=== PATIENT | female | born 1945 | race Caucasian/White ===

== ENCOUNTER → 2023-03-21 09:18 | Outpatient (REF) | payer MEDICARE, SELFPAY ==
[2023-03-21 10:55] LABS: HDL Cholesterol 51 mg/dl; LDL Cholesterol, Calculated 75 mg/dl; Total Cholesterol 191 mg/dl (50-199); Triglyceride 327 mg/dl (10-149); Very Low Density Lipoprotein 65 mg/dl (0-30)
== END ==
LOC: REG 09:18
PROVIDERS: ATTENDING PHYSICIAN Internal Medicine Cardiovascular Disease; FAMILY PHYSICIAN Internal Medicine
DX: E78.2 Mixed hyperlipidemia (principal); I25.10 Atherosclerotic heart disease of native coronary artery without angina pectoris
CPT/HCPCS: 36415; 80061

== ENCOUNTER → 2023-04-21 08:16 | Outpatient (REF) | payer MEDICARE, SELFPAY | LOC: PAVMRI 08:16 | PROVIDERS: ATTENDING PHYSICIAN Specialist; FAMILY PHYSICIAN Internal Medicine | DX: M19.011 Primary osteoarthritis, right shoulder (principal) | CPT/HCPCS: 73221 ==

== ENCOUNTER → 2023-05-05 09:11 | Outpatient (REF) | payer MEDICARE, SELFPAY | LOC: RAD 09:11 | PROVIDERS: ATTENDING PHYSICIAN Internal Medicine Cardiovascular Disease; FAMILY PHYSICIAN Internal Medicine | DX: I77.9 Disorder of arteries and arterioles, unspecified (principal); I35.1 Nonrheumatic aortic (valve) insufficiency | CPT/HCPCS: 93880 ==

== ENCOUNTER → 2023-06-18 09:15 | Outpatient (REF) | payer MEDICARE, SELFPAY | LOC: HWRCS 09:15 | PROVIDERS: ATTENDING PHYSICIAN Internal Medicine Cardiovascular Disease; FAMILY PHYSICIAN Internal Medicine | DX: R06.00 Dyspnea, unspecified (principal) | CPT/HCPCS: 93306 ==

== ENCOUNTER 2023-09-18 07:12 | Day surgery (SDC) | payer MEDICARE, SELFPAY ==
[2023-09-18] VITALS (21 sets, daily range): BP systolic 83–182; BP diastolic 50–101; BMI 30.3
[2023-09-18 07:43] LABS: Hematocrit 41.4 % (37.0-47.0); Hemoglobin 14.7 g/dL (12.0-16.0); Mean Corp Hgb Conc. 35.5 g/dL (33.0-37.0); Mean Platelet Volume 10.9 fL (7.4-10.4); Platelet Count 308 10^3/uL (130-400); White Blood Cell Count 5.8 10^3/uL (4.8-10.8)
[2023-09-18 07:48] LABS: Blood Urea Nitrogen 21 mg/dl (7-17); Calcium 9.7 mg/dl (8.4-10.2); Carbon Dioxide 28 mmol/L (22-30); Chloride 104 mmol/L (98-107); Estimated Creatinine Clearance 64 ml/min; Glucose 112 mg/dl (70-99); Potassium 5.1 mmol/L (3.5-5.1); Sodium 137 mmol/L (135-145); eGFR > 60.00
[2023-09-18] MEDS: ASPIR LOW (ENTERIC COATED) 81 MG PO (08:09)
[2023-09-18 10:47] LABS: ACT-LR - POC 124 Seconds (116-155)
[2023-09-18 10:57] LABS: ACT-LR - POC 268 Seconds (116-155)
[2023-09-18 11:15] LABS: ACT-LR - POC 265 Seconds (116-155)
[2023-09-18] MEDS: NSS 1000 IV (12:17)
[2023-09-18] MEDS: LASIX 20 MG IV (12:17)
--- NOTE | 2023-09-18 12:49 | ITS.CL.CATH ---
Dorr Operator - Catheterization
Cardiac Catheterization
Procedure Report:
LEFT HEART CATHETERIZATION
Date of Procedure: September 18, 2023
Referring: Dr. Sneha Deutsch
PROCEDURES:
1. Left heart catheterization with coronary angiography
2. Ascending aortography
3. Hemodynamic assessment of LAD and circumflex
INDICATION: This is a 77-year-old female with a prior history of coronary artery disease and complex coronary intervention of the proximal to distal RCA. She initially presented for a diagnostic catheterization on 07/23/2020 and an attempted PCI of
the mid RCA was complicated by a calcific mid RCA stenosis. Balloon dilation of the mid to distal RCA was performed. The patient returned on 08/07/2020 and underwent orbital atherectomy with multiple passes and subsequent placement of a 2.5 x 38 mm
Xience stent in the mid to distal RCA and a 3.0 x 28 mm Xience stent in the proximal-mid RCA.
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 She was seen by Dr. Deutsch and reported symptoms of shortness of breath both at rest and with minimal
exertion such as when performing light housework. There was concern that her symptoms may be ischemic related and she is now referred for coronary angiography.
Her most recent Lexiscan Myoview from 09/29/2022 was notable for a small predominantly fixed apical anterior, apical lateral defect consistent with infarction versus soft tissue attenuation with an estimated ejection fraction of 67%. An
echocardiogram from 06/18/2023 was notable for moderate aortic valve insufficiency with an aortic valve pressure half-time of 463 ms.
ACCESS: Right radial artery, 6 [place] sheath
HEMODYNAMICS : (mmHg)
AO (s/d) : 184/73
LV (s/d) : 186/13
LVEDP : 34
CORONARY FINDINGS
DOMINANCE: Right
LEFT MAIN: Short and unobstructed
LEFT ANTERIOR DESCENDING: The LAD arises normally from the left main and runs in the anterior interventricular groove. The first diagonal branch arises from the proximal third of the LAD and demonstrates an angiographically stable 70% ostial
stenosis and 80% stenosis in its midportion. Just beyond the diagonal branch the mid LAD has an angiographically smooth 30% stenosis that does not appear to be flow-limiting. Interestingly, the iFR measured in the distal LAD was just at the
ischemic threshold at 0.89 with a gradual step up noted from the distal to proximal vessel
CIRCUMFLEX: The circumflex gives rise to a small OM1. Circumflex terminates in a moderate caliber OM 2 that has a 65% proximal stenosis. Surprisingly, the iFR across the stenosis measured above the ischemic threshold at 0.93, 0.93, and 0.92
RIGHT CORONARY ARTERY: The origin of the RCA proved difficult to cannulate. We utilized multiple diagnostic catheters including a JR4, AR-2 mod, JAJA, and an AL-1. The AR2-Mod came close to selective cannulation but visualization was suboptimal.
Ultimately, the origin of the RCA was cannulated using an AL-0.75 6Fr guide catheter. The AL 0.75 / 6Fr guide catheter cannulated the origin of the RCA well. The stents in the RCA are widely patent. A small diffusely diseased posterolateral
branch is now noted to fill. This was not seen on the prior study.
ASCENDING AORTOGRAPHY: The descending thoracic aorta is moderately dilated with +2-+3 aortic insufficiency
HEMODYNAMIC ASSESSMENT OF THE LAD AND CIRCUMFLEX WITH A [employer] OMNI WIRE: The origin of the left main was cannulated with a 6 Fr EBU 3.5 guide catheter. Intravenous heparin was administered and the ACT was followed during the procedure. Two
hundred micrograms of intracoronary nitroglycerin was given through the guide catheter. A [place] Omni wire was advanced to the guide catheter tip and normalized to guide catheter pressure. The Omni wire was then carefully advanced to the distal
LAD where the iFR was serially measured at the ischemic threshold at 0.89. A pullback measurement was performed and there was gradual step up with no obvious focal obstructive stenosis throughout the LAD back to the guide catheter where the Pd/Pa
measured 0.99. The Omni wire was redirected to the circumflex/OM 2 and the iFR serially measured above the ischemic threshold at 0.93, 0.93, and 0.92. When the Omni wire was withdrawn to the guide catheter the resting Pd/Pa measured 0.99
confirming no significant baseline drift.
RADIATION SUMMARY: Fluoro Time (min): 19.7, Dose (mGy): 830, DAP (Gy.cm2) : 62.8
Closure Device: TR band
CONCLUSIONS
1. Patent proximal and mid RCA stents. A 6Fr / AL0.75 guide catheter was required to cannulate the origin of the RCA
2. Angiographically mild coronary artery disease in the mid LAD just beyond the first diagonal branch with the iFR measuring just at the ischemic threshold in the distal LAD and gradual step up noted during pullback. The diagonal branch has stable
coronary stenosis as described above. The mid circumflex/OM 2 has a 65% stenosis, however, the iFR measures above the ischemic threshold
3. Moderate aortic insufficiency with dilated aortic root
4. Elevated LVEDP
RECOMMENDATIONS
1. Continued medical therapy. Would recommend trial of diuretic given the significantly elevated LVEDP. Will start furosemide 20 mg daily
2. Begin amlodipine 2.5 mg daily and increase Toprol all XL from 25 mg daily to 25 mg p.o. twice daily
3. Noncontrast CT chest to evaluate aortic dimensions. The proximal ascending aorta appears dilated
4. Shortness of breath both at rest and with exertion. No obvious anginal symptoms. Difficult to assess etiology. The diagonal stenosis appears angiographically stable. The posterolateral branch has diffuse disease but was not even noted to
fill on the prior study from 2020. Medical therapy is appropriate for this vascular territory as well
Copy to: Dr. Sneha Deutsch
== END 2023-09-18 15:34 | disposition home or self-care (01) ==
LOC: CATH 07:12
PROVIDERS: ATTENDING PHYSICIAN Internal Medicine Interventional Cardiology; FAMILY PHYSICIAN Internal Medicine; OTHER PHYSICIAN Internal Medicine Cardiovascular Disease
DX: I25.10 Atherosclerotic heart disease of native coronary artery without angina pectoris (principal); R06.02 Shortness of breath; Z95.5 Presence of coronary angioplasty implant and graft; I35.1 Nonrheumatic aortic (valve) insufficiency; Z79.82 Long term (current) use of aspirin; Z79.02 Long term (current) use of antithrombotics/antiplatelets; K21.9 Gastro-esophageal reflux disease without esophagitis; E11.9 Type 2 diabetes mellitus without complications; G47.33 Obstructive sleep apnea (adult) (pediatric)
CPT/HCPCS: 80048; 85027; 93458; 93567; 93571; 93572; Q9967

== ENCOUNTER → 2023-10-06 09:58 | Outpatient (REF) | payer MEDICARE, SELFPAY ==
[2023-10-06 11:29] LABS: Blood Urea Nitrogen 25 mg/dl (7-17); Calcium 9.8 mg/dl (8.4-10.2); Chloride 100 mmol/L (98-107); Glucose 88 mg/dl (70-99); Magnesium 2.2 mg/dl (1.6-2.3); Potassium 5.2 mmol/L (3.5-5.1); Sodium 136 mmol/L (135-145); eGFR > 60.00
[2023-10-06 11:31] LABS: Carbon Dioxide 29 mmol/L (22-30)
== END ==
LOC: RAD 09:58
PROVIDERS: ATTENDING PHYSICIAN Nurse Practitioner Adult Health; FAMILY PHYSICIAN Internal Medicine; REFERRING PHYSICIAN Internal Medicine Cardiovascular Disease
DX: I71.9 Aortic aneurysm of unspecified site, without rupture (principal); I25.42 Coronary artery dissection
CPT/HCPCS: 36415; 71250; 80048; 83735

== ENCOUNTER → 2023-12-29 09:47 | Outpatient (REF) | payer MEDICARE, SELFPAY ==
[2023-12-29 12:41] LABS: % Basophils 0.9 % (0-2); % Immature Granulocytes 0.1 % (0-0.5); % Lymphocytes 23.8 % (20.5-51.1); % Monocytes 7.5 % (1.7-9.3); % Neutrophils 49.7 % (42.2-75.2); Absolute Basophils 0.1 10^3/uL (0-0.2); Absolute Eosinophils 1.4 10^3/uL (0-0.7); Absolute Lymphocytes 1.9 10^3/uL (1.2-3.4); Absolute Monocytes 0.6 10^3/uL (0.1-0.6); Absolute Neutrophils 3.9 10^3/uL (1.4-6.5); Hematocrit 42.6 % (37.0-47.0); Hemoglobin 14.7 g/dL (12.0-16.0); Mean Corp Hgb Conc. 34.5 g/dL (33.0-37.0); Mean Corpuscular Volume 92.6 fL (81.0-99.0); Mean Platelet Volume 11.1 fL (7.4-10.4); Nucleated Red Blood Cells % 0 %; Platelet Count 323 10^3/uL (130-400); White Blood Cell Count 7.8 10^3/uL (4.8-10.8)
[2023-12-29 12:53] LABS: Erythrocyte Sed Rate 14 mm/hour (0-20)
[2023-12-29 13:43] LABS: ALT (SGPT) 32 U/L (0-35); AST (SGOT) 34 U/L (14-36); Albumin 4.9 g/dl (3.5-5.0); Alkaline Phosphatase 83 U/L (38-126); Blood Urea Nitrogen 36 mg/dl (7-17); Calcium 10.1 mg/dl (8.4-10.2); Carbon Dioxide 29 mmol/L (22-30); Chloride 100 mmol/L (98-107); Glucose 107 mg/dl (70-99); HDL Cholesterol 53 mg/dl; LDL Cholesterol, Calculated 102 mg/dl; Magnesium 2.3 mg/dl (1.6-2.3); NT-proBNP 85.5 pg/ml; Sodium 140 mmol/L (135-145); Total Bilirubin 0.6 mg/dl (0.2-1.3); Total Cholesterol 223 mg/dl (50-199); Total Protein 7.9 g/dl (6.3-8.2); Triglyceride 340 mg/dl (10-149); Very Low Density Lipoprotein 68 mg/dl (0-30); eGFR 58.02
[2023-12-29 13:51] LABS: Vitamin D, 25-OH*** 50.6 ng/mL (30-80)
[2023-12-29 14:05] LABS: TSH Reflex To Free T4 0.57 uIU/ml (0.47-4.68)
[2023-12-30 09:10] LABS: Medical Necessity Pt Refused B12
[2023-12-30 09:34] LABS: Glycohemoglobin (HgbA1c) 5.5 % (4.0-5.6)
== END ==
LOC: RCS 09:47
PROVIDERS: ATTENDING PHYSICIAN Internal Medicine Cardiovascular Disease; FAMILY PHYSICIAN Nurse Practitioner Family
DX: R06.00 Dyspnea, unspecified (principal); R53.82 Chronic fatigue, unspecified; I10 Essential (primary) hypertension; I25.10 Atherosclerotic heart disease of native coronary artery without angina pectoris; E78.49 Other hyperlipidemia; E55.9 Vitamin D deficiency, unspecified; R73.9 Hyperglycemia, unspecified
CPT/HCPCS: 36415; 80053; 80061; 82306; 83036; 83735; 83880; 84443; 85025; 85652; 93306

== ENCOUNTER → 2023-12-31 08:52 | Outpatient (REF) | payer MEDICARE, SELFPAY | LOC: HWRAD 08:52 | PROVIDERS: ATTENDING PHYSICIAN Nurse Practitioner Family | DX: Z78.0 Asymptomatic menopausal state (principal); Z12.31 Encounter for screening mammogram for malignant neoplasm of breast | CPT/HCPCS: 77063; 77067; 77080 ==

== ENCOUNTER → 2024-01-19 09:03 | Outpatient (REF) | payer MEDICARE, SELFPAY | LOC: RSP 09:03 | PROVIDERS: ATTENDING PHYSICIAN Internal Medicine Cardiovascular Disease; FAMILY PHYSICIAN Nurse Practitioner Family | DX: R06.00 Dyspnea, unspecified (principal) | CPT/HCPCS: 94727; 94729; 88738; 94010 ==

== ENCOUNTER 2024-04-07 10:02 | Inpatient (IN) | payer MEDICARE, SELFPAY ==
[2024-04-07] VITALS (10 sets, daily range): BP systolic 100–160; BP diastolic 51–78; BMI 28.9
[2024-04-07 07:17] LABS: Hematocrit 39.7 % (37.0-47.0); Hemoglobin 13.5 g/dL (12.0-16.0); Mean Corpuscular Hgb 31.9 pg (27.0-31.0); Mean Corpuscular Volume 93.9 fL (81.0-99.0); Mean Platelet Volume 10.6 fL (7.4-10.4); Platelet Count 291 10^3/uL (130-400); Red Blood Cell Count 4.23 10^6/uL (4.20-5.40); Red Cell Dist. Width 12.1 % (11.5-14.5); White Blood Cell Count 6.7 10^3/uL (4.8-10.8)
[2024-04-07 07:33] LABS: ALT (SGPT) 30 U/L (0-35); AST (SGOT) 34 U/L (14-36); Albumin 4.3 g/dl (3.5-5.0); Alkaline Phosphatase 65 U/L (38-126); Blood Urea Nitrogen 34 mg/dl (7-17); Calcium 8.9 mg/dl (8.4-10.2); Carbon Dioxide 30 mmol/L (22-30); Chloride 103 mmol/L (98-107); Estimated Creatinine Clearance 51 ml/min; Glucose 105 mg/dl (70-99); Potassium 5.2 mmol/L (3.5-5.1); Sodium 140 mmol/L (135-145); Total Bilirubin 0.6 mg/dl (0.2-1.3); Total Protein 7.4 g/dl (6.3-8.2); eGFR 58.02
[2024-04-07 09:16] LABS: ACT-LR - POC 240 Seconds (116-155)
[2024-04-07] MEDS: NSS 1000 IV (09:42)
--- NOTE | 2024-04-07 10:52 | ITS.CL.CATH ---
Shopper - Catheterization
Cardiac Catheterization
Procedure Report:
LEFT AND RIGHT HEART CATHETERIZATION
Date of Procedure: April 07, 2024
Referring: Sneha Deutsch MD
PROCEDURES:
1. Left catheterization, coronary angiogram.
2. Right heart catheterization.
3. Ultrasound-guided access.
4. Functional physiologic testing with IFR of mid left circumflex/OM
5. Functional physiologic testing with IFR of LAD
INDICATION: Abnormal stress test and ongoing dyspnea on exertion
ACCESS: Right radial artery, 6 [place] sheath, under ultrasound-guided
Ultrasound was utilized for vascular access. The radial artery was visualized under ultrasound, and the vessel was patent and pulsatile. An image was stored permanently in the patient's medical record. Under direct ultrasound guidance, a 6 [place]
sheath was inserted into the artery using a micropuncture kit through a modified Seldinger technique.
HEMODYNAMICS : (mmHg)
RA (m) : 13
RV (s/d,m) : 32/7, 13
PA (s/d, m) : 30/16, 22
PCWP (m) : 21
PA saturation: 68.5% on room air
AO saturation: 98.0% on room air
SVC saturation: 74.6% on room air
Cardiac Output : 3.64 L/min by Cele calculation
Cardiac Index : 1.90 L/min/m-2 by Cele calculation
Systemic vascular resistance: 1716 dsc^(-5)
Pulmonary vascular resistance: 0.28 landers unit
AO (s/d) : 131/58
LV (s/d) : 126/9
LVEDP : 16
CORONARY FINDINGS
DOMINANCE: Right
LEFT MAIN: The left main artery is a large-caliber, short vessel which gives rise to the left anterior descending artery and the left circumflex artery. There is minimal luminal irregularities.
LEFT ANTERIOR DESCENDING: The left anterior descending artery is a medium caliber vessel which gives rise to 1 major medium to large caliber diagonal branch as it courses to the anterior interventricular groove towards the apex. LAD proper has mild
to moderate diffuse atherosclerotic plaque. The diagonal branch has an eccentric 85% ostial stenosis and a 80% stenosis in the midportion. Interestingly, the IFR measured in the distal LAD is below the ischemic threshold at 0.82 with no obvious
focal stenosis.
CIRCUMFLEX: The circumflex gives rise to a small OM1. Circumflex terminates in a moderate caliber OM 2 that has a eccentric 70% proximal stenosis, which was IFR positive as noted above at 0.73
RIGHT CORONARY ARTERY: The right coronary artery is a medium to large caliber vessel which gives rise to the right posterior descending artery. Previously placed stents are widely patent. There is faint appearance of antegrade filling of the RPL
branch.
HEMODYNAMIC ASSESSMENT OF THE MID LEFT CIRCUMFLEX WITH A [place] OMNI WIRE: The origin of the left coronary artery was cannulated with a 6 Fr EBU 3.5 guide catheter. Intravenous heparin was administered and the ACT was followed during the
procedure. Two hundred micrograms of intracoronary nitroglycerin was given through the guide catheter. A Yeso Omni wire was advanced to the guide catheter tip and normalized just outside the guide catheter. The Omni wire was then carefully
manipulated across the stenosis in the mid left circumflex with the iFR below the ischemic threshold serially measuring 0.73, 0.75, 0.74. The Omni wire was then pulled back to the guide catheter where the Pd/Pa measured 1.0 confirming no baseline
drift in pressure readings
HEMODYNAMIC ASSESSMENT OF THE LAD WITH A [place] OMNI WIRE: The origin of the left coronary artery was cannulated with a 6 Fr EBU 3.5 guide catheter. Intravenous heparin was administered and the ACT was followed during the procedure. Two hundred
micrograms of intracoronary nitroglycerin was given through the guide catheter. A Yeso Omni wire was advanced to the guide catheter tip and normalized just outside guide catheter pressure. The Omni wire was then carefully manipulated across the
stenosis in the LAD with the iFR below the ischemic threshold serially measuring 0.84, 0.82, 0.84. The Omni wire was then pulled back to the guide catheter where the Pd/Pa measured 1.0 confirming no baseline drift in pressure readings
SEDATION: 66 minutes of procedural sedation was utilized. An independent behavioral medical director was present to assist with and help manage the patient's level of consciousness and physiologic status.
RADIATION SUMMARY: Fluoro Time (min): 10.0, Dose (mGy): 587.66, DAP (Gy.cm2) : 35.55
Closure Device: Vascular band over right radial artery, 10 cc of air.
CONCLUSIONS
1. The left anterior descending artery is a medium caliber vessel which gives rise to 1 major medium to large caliber diagonal branch as it courses to the anterior interventricular groove towards the apex. LAD proper has mild to moderate diffuse
atherosclerotic plaque. The diagonal branch has an eccentric 85% ostial stenosis and a 80% stenosis in the midportion. Interestingly, the IFR measured in the distal LAD is below the ischemic threshold at 0.82 with no obvious focal stenosis.
2. Circumflex terminates in a moderate caliber OM 2 that has a eccentric 70% proximal stenosis, which was IFR positive as noted above at 0.73
3. Elevated LVEDP at 16 mmHg.
RECOMMENDATIONS
1. Discussion was had with reviewing of the images with CT surgeon, Dr. Christiano Dorado. Angiographically there is no focal stenosis within the LAD to explain the iFR noted above. Given nonsurgical disease, after discussion with CT surgery and
patient, in a shared decision-making fashion the plan will be to stage PCI to left circumflex/OM and diagonal branch.
2. Patient will be loaded with 300 mg of Plavix tonight in preparation for planned intervention tomorrow.
3. Wean radial band per protocol.
4. Aggressive management of cardiovascular risk factors.
5. Optimization of goal-directed medical therapy for coronary artery disease.
6. Eventual referral for outpatient cardiac rehab.
Copy to: Sneha Deutsch
Harleen Che MD, FAC, [facility]
[2024-04-07] MEDS: LASIX 20 MG IV (11:31)
[2024-04-07 11:37] LABS: ACT-LR - POC > 397 Seconds (116-155)
[2024-04-07] MEDS: TYLENOL 650 MG PO (16:24)
--- NOTE | 2024-04-07 16:50 | PTCARENOTE ---
Rec'd pt from nursery laborer awake and alert. Pt denies pain, denies sob. Rt radial site dsg intact. Rt brachial site dsg intact. No hematoma, no bleeding. Good palpable pulses to rt brachial and rt radial. Pt c/o H/A, tylenol given. See worklist for VS/I
and O and assessments.
[2024-04-07] MEDS: LOW STRENGTH ASPIRIN 81 MG PO (17:11)
[2024-04-07] MEDS: NORVASC 2.5 MG PO (17:11)
[2024-04-07] MEDS: ZESTRIL 40 MG PO (17:11)
--- NOTE | 2024-04-07 19:36 | PTCARENOTE ---
Received patient at change of shift. Patient resting in bed, aroused to sound. A&Ox3. Right radial and brachial sites clean, dry, and intact. No ecchymosis, no swelling. Vitals stable. Discussed plan of care. Patient verbalized understanding. Call
smith within reach.
[2024-04-07] MEDS: TOPROL XL 25 MG PO (20:51)
[2024-04-07] MEDS: PLAVIX 300 MG PO (20:51)
[2024-04-08] VITALS (16 sets, daily range): BP systolic 112–140; BP diastolic 56–73; BMI 29.7
[2024-04-08 05:10] LABS: Hematocrit 36.8 % (37.0-47.0); Hemoglobin 12.7 g/dL (12.0-16.0); Mean Corp Hgb Conc. 34.5 g/dL (33.0-37.0); Mean Corpuscular Hgb 31.6 pg (27.0-31.0); Mean Corpuscular Volume 91.5 fL (81.0-99.0); Mean Platelet Volume 10.6 fL (7.4-10.4); Platelet Count 255 10^3/uL (130-400); Red Blood Cell Count 4.02 10^6/uL (4.20-5.40); Red Cell Dist. Width 11.7 % (11.5-14.5); White Blood Cell Count 5.4 10^3/uL (4.8-10.8)
[2024-04-08 05:33] LABS: Blood Urea Nitrogen 29 mg/dl (7-17); Calcium 9.1 mg/dl (8.4-10.2); Carbon Dioxide 30 mmol/L (22-30); Chloride 104 mmol/L (98-107); Estimated Creatinine Clearance 63 ml/min; Glucose 104 mg/dl (70-99); HDL Cholesterol 40 mg/dl; LDL Cholesterol, Calculated 72 mg/dl; Potassium 4.6 mmol/L (3.5-5.1); Sodium 139 mmol/L (135-145); Total Cholesterol 181 mg/dl (50-199); Triglyceride 348 mg/dl (10-149); Very Low Density Lipoprotein 69 mg/dl (0-30); eGFR > 60.00
[2024-04-08] MEDS: PROZAC 20 MG PO (07:53)
[2024-04-08] MEDS: PROZAC 10 MG PO (07:53)
[2024-04-08] MEDS: TOPROL XL 25 MG PO ×2 (07:53→19:32)
[2024-04-08] MEDS: PROTONIX 40 MG PO (07:53)
[2024-04-08 13:21] LABS: ACT-LR - POC 218 Seconds (116-155)
[2024-04-08 13:31] LABS: ACT-LR - POC 269 Seconds (116-155)
[2024-04-08 13:40] LABS: ACT-LR - POC 337 Seconds (116-155)
[2024-04-08 14:02] LABS: ACT-LR - POC 277 Seconds (116-155)
[2024-04-08 14:16] LABS: ACT-LR - POC 339 Seconds (116-155)
[2024-04-08 14:43] LABS: ACT-LR - POC 268 Seconds (116-155)
[2024-04-08] MEDS: NSS 1000 IV (15:17)
--- NOTE | 2024-04-08 15:52 | CM ---
spoke to pt in room, she is prev indep, lives with her sister in a 1 story home with no step fish. she uses a cane and has a walker to use if needed. she denies any dc planning needs. plan is for dc to home when medically stable.
[2024-04-08] MEDS: PLAVIX 75 MG PO (17:29)
[2024-04-08] MEDS: ZESTRIL 40 MG PO (17:29)
[2024-04-08] MEDS: LOW STRENGTH ASPIRIN 81 MG PO (17:29)
[2024-04-08] MEDS: NORVASC 2.5 MG PO (17:29)
[2024-04-08] MEDS: TYLENOL 650 MG PO (19:33)
--- NOTE | 2024-04-08 20:26 | ITS.CL.CATH ---
Digital Sales Representative - Catheterization
Cardiac Catheterization
Procedure Report:
CORONARY INTERVENTION
Date of Procedure: April 08, 2024
Referring: Sneha Deutsch MD
PROCEDURES:
1. Selective left coronary angiogram.
2. Ultrasound-guided access.
3. Successful percutaneous coronary artery intervention of an IFR positive 70% left circumflex/OM 2 stenosis with one 2.5 x 18 Medtronic [place] drug-eluting stent, postdilated using IVUS guidance with a 2.75 x 15 mm NC balloon at 18 tripp with an
excellent angiographic and IVUS based result.
4. Attempted percutaneous coronary artery intervention of significant diagonal disease but failed given difficulty crossing with the balloon in setting of poor guide support and patient being extremely uncomfortable due to chronic back
pain/arthritic pain
5. Intravascular ultrasound (IVUS)
INDICATION: Abnormal stress test and ongoing dyspnea on exertion
ACCESS: Right radial artery, 6 [place] sheath, under ultrasound-guided
Ultrasound was utilized for vascular access. The radial artery was visualized under ultrasound, and the vessel was patent and pulsatile. An image was stored permanently in the patient's medical record. Under direct ultrasound guidance, a 6 [place]
sheath was inserted into the artery using a micropuncture kit through a modified Seldinger technique.
HEMODYNAMICS : (mmHg)
AO (s/d) : 146/68
CORONARY FINDINGS
DOMINANCE: Right
LEFT MAIN: The left main artery is a large-caliber, short vessel which gives rise to the left anterior descending artery and the left circumflex artery. There is minimal luminal irregularities.
LEFT ANTERIOR DESCENDING: The left anterior descending artery is a medium caliber vessel which gives rise to 1 major medium to large caliber diagonal branch as it courses to the anterior interventricular groove towards the apex. LAD proper has mild
to moderate diffuse atherosclerotic plaque. The diagonal branch has an eccentric 85% ostial stenosis and a 80% stenosis in the midportion. PCI was attempted at the diagonal branch but failed with details below.
CIRCUMFLEX: The circumflex gives rise to a small OM1. Circumflex terminates in a moderate caliber OM 2 that has a eccentric 70% proximal stenosis, which was IFR positive as noted above at 0.73 on recent diagnostic heart catheterization. Successful
intervention was performed as noted below.
RIGHT CORONARY ARTERY: On recent study, the right coronary artery is a medium to large caliber vessel which gives rise to the right posterior descending artery. Previously placed stents are widely patent. There is faint appearance of antegrade
filling of the RPL branch.
CORONARY INTERVENTION: The left coronary artery was selectively engaged using a 6 [place] EBU 3.75 guide catheter. Additional heparin was given to maintain a therapeutic ACT throughout the case. Given need to use extreme caudal and cranial angles
to lay out both the OM 2 and diagonal lesions, fluoroscopy/cine images were extremely degraded and grainy making it very challenging. A 190 cm 0.014 run-through wire was successfully advanced into the OM branch. The OM 2 lesion was predilated
using a 2.5 x 12 mm semicompliant balloon and inflated for 30 seconds at 14 tripp with good expansion. Given significant difficulty delivering stent, a 6 [place] guide liner was used to provide additional support given extremely poor guide support.
The lesion was subsequently stented using a 2.5 x 18 mm Medtronic [place] drug-eluting stent and postdilated using IVUS guidance with a 2.75 x 15 mm NC balloon at 18 tripp with an excellent angiographic result. Of note, patient did have reproduction of
her posterior neck/jaw discomfort upon intervention to the left circumflex/OM. At this point we decided to turn our attention to the diagonal branch. The run-through was retracted back from the OM and redirected into the LAD proper. The guide
liner was taken out. A 190 cm 0.014 BMW wire was used to attempt navigation across the obstructive diagonal lesions however despite using multiple different brands and with multiple passes we could not successfully advance the wire into the
diagonal branch. At this time we decided to try a 190 cm 0.014 whisper wire and struggles similarly where despite using different bends and multiple passes we could not advance beyond the ostial stenosis due to angulation. It was also extremely
challenging given extreme [place] cranial angles to visualize the lesion, fluoroscopy and cine images were extremely degraded. At this time we brought in a 300 cm 0.014 BMW wire through a Dariana microcatheter to allow for additional support. With the
microcatheter support we were able to advance into the mid diagonal with the long BMW wire. We now attempted to predilate the lesion using a 2.5 x 12 mm semicompliant balloon however we could not cross the lesion. We then attempted to cross with a
1.5 x 12 mm [place] balloon however we continue to struggle with the balloon not passing across the ostial lesion pushing guide and the entire system back. We attempted multiple passes with different maneuvers and still could not succeed to deliver
the balloons. Throughout this time patient had started to complain of significant chronic arthritic pain that was acutely worsening despite adequate sedation and pain medications with lower back pain while on the cath table. Given patient
discomfort and the fact that we had used 2 Gy of radiation already along with 150cc contrast we decided to abort given patient was otherwise stable hemodynamically and clinically with no acute symptoms.
SEDATION: 105 minutes of procedural sedation was utilized. An independent medical information officer was present to assist with and help manage the patient's level of consciousness and physiologic status.
RADIATION SUMMARY: Fluoro Time (min): 30 point, Dose (mGy): 2030.54, DAP (Gy.cm2) : 156.61
Closure Device: Vascular band over right radial artery, 10 cc of air.
CONCLUSIONS
1. Successful percutaneous coronary artery intervention of an IFR positive 70% left circumflex/OM 2 stenosis with one 2.5 x 18 Medtronic [place] drug-eluting stent, postdilated using IVUS guidance with a 2.75 x 15 mm NC balloon at 18 tripp with an
excellent angiographic and IVUS based result.
2. Attempted percutaneous coronary artery intervention of significant diagonal disease but failed given difficulty crossing with the balloon in setting of poor guide support and patient being extremely uncomfortable due to chronic back
pain/arthritic pain
RECOMMENDATIONS
1. Continue dual antiplatelet therapy with daily baby aspirin and Plavix 75 mg along with lipid-lowering agents given statin allergy and beta-jayshree as tolerated.
2. Plan for close outpatient cardiology follow-up and monitoring of symptoms to discuss staging diagonal intervention possibly from groin access given poor guide support.
3. Wean radial band per protocol.
4. Aggressive management of cardiovascular risk factors.
5. Optimization of goal-directed medical therapy for coronary artery disease.
6. Eventual referral for outpatient cardiac rehab.
Copy to: Sneha Deutsch
Harleen Che MD, FACC, [facility]
--- NOTE | 2024-04-08 22:49 | PTCARENOTE ---
Pt rec'd at change of shift with R band intact. All air removed prior on day shift. Radial band removed at 1905. area cleansed with nss and 2x2 and transparent drsg applied. Good radial pulse no hematoma or active bleeding noted. pt medicated with
Tylenol for c/o chronic right shoulder pain.
reports pain improved at this time.
[2024-04-09 04:57] VITALS: BP 126/58
[2024-04-09 05:36] LABS: Hematocrit 36.4 % (37.0-47.0); Hemoglobin 12.4 g/dL (12.0-16.0); Mean Corp Hgb Conc. 34.1 g/dL (33.0-37.0); Mean Corpuscular Hgb 32.2 pg (27.0-31.0); Mean Corpuscular Volume 94.5 fL (81.0-99.0); Mean Platelet Volume 10.4 fL (7.4-10.4); Platelet Count 259 10^3/uL (130-400); Red Blood Cell Count 3.85 10^6/uL (4.20-5.40); Red Cell Dist. Width 11.9 % (11.5-14.5); White Blood Cell Count 6.8 10^3/uL (4.8-10.8)
[2024-04-09 05:53] LABS: Blood Urea Nitrogen 16 mg/dl (7-17); Calcium 8.8 mg/dl (8.4-10.2); Carbon Dioxide 26 mmol/L (22-30); Chloride 107 mmol/L (98-107); Estimated Creatinine Clearance 64 ml/min; Glucose 108 mg/dl (70-99); Potassium 4.4 mmol/L (3.5-5.1); Sodium 139 mmol/L (135-145); eGFR > 60.00
--- NOTE | 2024-04-09 08:14 | W.PN.CARDCBS ---
Addendum entered and electronically signed by Sagar Camacho DO 04/09/24 10:14:
I saw and examined the patient.
The Hand Inspector's note was reviewed and I agree with the note.
Comment:
Patient resting comfortably in chair. No shortness of breath or recurrent anginal symptoms.
GEN: No distress, awake, Ox3, sitting in chair
HEENT: supple, anicteric, mmm
LUNGS: CTA, no wheezes/rales
CV: Reg, S1/S2, 1/6 systolic soft murmur at right sternal border, no rub or click
ABD: soft, BS+, NT/ND, obese
EXT: No edema, warm, dry, pink; right radial access site with minimal ecchymosis, no hematoma or sign of infection, palpable radial/ulnar pulses
NEURO: Gross non-focal
SKIN: No rash, warm, dry, pink
Telemetry sinus rhythm, no arrhythmia
EKG sinus rhythm right bundle branch block left axis deviation, inferior infarct pattern, anterior infarct pattern chronic, no significant change from prior ECG
A/P as below
Patient status post PCI to circumflex/OM 2 with unsuccessful PCI to diagonal with resolution of anginal symptoms
DAPT with aspirin/Plavix
Praluent, Toprol, lisinopril for goal-directed medical therapy
Pertinent medical cardiology, plan for advancing antianginals as outpatient if recurrence or refractory to antianginals, possible staged PCI to diagonal branch
Cardiac rehab
Patient has established follow-up
Stable for DC from CV standpoint
Original Note:
Today's Communication / Plan
-
Patient doing well no recurrence of anginal symptoms
Continue dual antiplatelet therapy with aspirin and Plavix
Continue Praluent, Toprol, lisinopril
Advance antianginals as needed
Consider return for diagonal PCI if reoccurrence of anginal symptoms
Outpatient cardiac rehab eval
Patient stable from cardiac standpoint for discharge with outpatient follow-up arranged
Impression / Plan
-
PCP: Torri Infante
Brilliandeer Lopper: Sneha Deutsch
Impression:
Presented 04/07/2024 for elective cardiac catheterization after noting worsening dyspnea on exertion and jaw discomfort with functional decline. PET CT stress test with ischemia in mid to distal LAD territory.
Multivessel coronary artery disease
s/p circumflex/OM2 2.5 x 18 Medtronic Luis Antonio drug-eluting stent 04/08/2024
Status post orbital atherectomy with placement of 2.5 x 38 mm Xience NA to mid/distal RCA and 3.0 x 28 mm Xience NA to proximal-mid RCA (08/07/2020)
Heart failure with preserved ejection fraction
Hypertension
Dilation of thoracic aorta
Aortic regurgitation
Mixed hyperlipidemia
Statin intolerance
Right bundle branch block
Bilateral carotid disease
Fibromyalgia
Chronic pain syndrome
COPD
Cardiac catheterization 04/08/2024: LM: ADELIA. LAD: Mild to moderate diffuse atherosclerotic plaque. D1 85% ostial and 80% mid stenosis (attempted PCI but unable to pass balloon, aborted (. Left circumflex eccentric 70% proximal stenosis which was
IFR positive at 0.73 s/p 2.5 x 18 Medtronic Luis Antonio drug-eluting stent. RCA patent previously placed stents faint appearance of antegrade filling of RPL.
HEMODYNAMICS : (mmHg) RA (m) : 13; RV (s/d,m) : 32/7, 13; PA (s/d, m) : 30/16, 22; PCWP (m) : 21; PA saturation: 68.5% on room air; AO saturation: 98.0% on room air; SVC saturation: 74.6% on room air;
Cardiac Output : 3.64 L/min by Cele calculation; Cardiac Index : 1.90 L/min/m-2 by Cele calculation; Systemic vascular resistance: 1716 dsc^(-5); Pulmonary vascular resistance: 0.28 landers unit; AO (s/d) : 131/58; LV (s/d) : 126/9; LVEDP : 16
Pharmacologic Cardiac PET stress testing 03/01/2024: moderate in size, mild in severity partially reversible mid to distal anterior wall perfusion defect. There is a small amount of ischemia in the LAD or diagonal distribution.
Systolic function is normal. The ejection fraction is >70%%. Stable dilatation of the ascending thoracic aorta measuring 4.4 cm in diameter.
Lexiscan Myoview from 09/29/2022: small predominantly fixed apical anterior, apical lateral defect consistent with infarction versus soft tissue attenuation with an estimated ejection fraction of 67%
Echo 12/29/2023: EF 60%. Normal regional wall motion. Stage I DD. Moderate AI. PAP 18 mmHg. Sinus of Valsalva measures 3.8 cm. Sinotubular junction measures 3.8 cm. Ascending aorta measures 4.4 cm.
Plan:
Presented 04/07/2024 for elective cardiac catheterization after noting worsening dyspnea on exertion and jaw discomfort with functional decline. PET CT stress test with ischemia in mid to distal LAD territory.
-Patient is status post 2.5 x 18 mm Cochran NA on 04/08/2024 with reproducible jaw discomfort during PCI. There was attempted intervention of diagonal branch however due to difficulty with passing balloon through lesion procedure was aborted. Medical
management was recommended
-Angiographically there was no focal stenosis within the LAD to explain abnormal IFR.
-Continue optimization of medical therapy with beta-jayshree, amlodipine, lisinopril and Praluent
-Patient reports that she is feeling well with no reoccurrence of chest discomfort or jaw pain overnight.
-Right radial access site clean dry and intact. No evidence of hematoma with good hand perfusion.
-EKG 04/09/2024 stable showing sinus rhythm with chronic right bundle branch block. No arrhythmias noted on telemetry. Blood pressure stable.
-Laboratory studies stable including hemoglobin of 12.4, BUN 16, creatinine 0.8
-Continue dual antiplatelet therapy with daily baby aspirin and Plavix 75 mg.
-Patient has known statin intolerance. Lipids 04/08/2024 TC 181, HDL 40, LDL 72, triglycerides 348. Continue Praluent. Patient does have Livalo at home but has not yet started. She plans on starting tonight
-Referral for outpatient cardiac rehab
-Patient stable for discharge to home. Outpatient cardiology follow-up arranged
Progress Note - Brilliandeer Lopper
Subjective
Date of Service: April 09, 2024
Patient seen and examined. Feels well. No additional jaw pain when ambulating around the room/unit.
Objective
Labs:
04/09/24 05:17
04/09/24 05:17
Labs
Hgb 12.4 g/dL (12.0-16.0) 04/09/24 05:17
Hct 36.4 % (37.0-47.0) L 04/09/24 05:17
Plt Count 259 10^3/uL (130-400) 04/09/24 05:17
Sodium 139 mmol/L (135-145) 04/09/24 05:17
Potassium 4.4 mmol/L (3.5-5.1) 04/09/24 05:17
BUN 16 mg/dl (7-17) 04/09/24 05:17
Creatinine 0.8 mg/dL (0.6-1.0) 04/09/24 05:17
Glucose 108 mg/dl (70-99) H 04/09/24 05:17
Vital Signs and I&O:
Vital Signs
Temp Pulse Resp BP Pulse Ox
98.3 F 73 20 126/58 96
04/09/24 04:57 04/09/24 04:57 04/09/24 04:57 04/09/24 04:57 04/09/24 04:57
Vital Signs
Temp Pulse Resp BP Pulse Ox
98.3 F 73 20 126/58 96
04/09/24 04:57 04/09/24 04:57 04/09/24 04:57 04/09/24 04:57 04/09/24 04:57
Physical Exam
Physical Exam
GEN: No distress, awake, Ox3, sitting in chair
HEENT: supple, anicteric, mmm
LUNGS: CTA, no wheezes/rales
CV: Reg, S1/S2, 1/6 systolic soft murmur at right sternal border, no rub or click
ABD: soft, BS+, NT/ND, obese
EXT: No edema, warm, dry, pink; right radial access site with minimal ecchymosis, no hematoma or sign of infection, palpable radial/ulnar pulses
NEURO: Gross non-focal
SKIN: No rash, warm, dry, pink
[2024-04-09 08:32] VITALS: BP 163/66
[2024-04-09 08:33] VITALS: BP 122/64
[2024-04-09] MEDS: PROTONIX 40 MG PO (08:37)
[2024-04-09] MEDS: TOPROL XL 25 MG PO (08:38)
[2024-04-09] MEDS: PROZAC 20 MG PO (08:38)
[2024-04-09] MEDS: PROZAC 10 MG PO (08:38)
--- NOTE | 2024-04-09 09:12 | W.DS.TRANS ---
DC Summary - Training Technician
-
Discharge Instructions:
Discharge Diagnosis/Procedures CAD, Angioplasty with stent to left circumflex
artery
Diet Low Cholesterol
Driving Restrictions No driving for 24 hours
Other Services Cardiac Rehab
Instructions:
Stand-Alone Forms: DC Instructions- Cath/EP Lab
Changes to Home Medications: No
Discharge Medications:
DC Medications w/original date entered in [facility]
fluoxetine 20 mg capsule 20 mg PO DAILY DEPRESSION 06/02/16
hydromorphone 4 mg tablet 4 mg PO Q6HPRN PRN pain 06/02/16
lisinopril 20 mg tablet 40 mg PO QPM BP 06/02/16
multivitamin (Qbr-Lrsosm-Zrebk tablet) 1 ea PO QPM Supplement 07/23/20
aspirin 81 mg chewable tablet 81 mg PO QPM BLOOD THINNER 08/07/20
clopidogrel 75 mg tablet 75 mg PO QPM PLATELETS 08/07/20
[place] 3 1 g PO QPM Supplement 09/18/23
fluoxetine 10 mg tablet 10 mg PO DAILY DEPRRESSION 09/18/23
pantoprazole 40 mg tablet,delayed release 40 mg PO DAILY STOMACH 09/18/23
alirocumab 150 mg/mL subcutaneous syringe See Rx Instructions .Route .COMPLEX 04/07/24
amlodipine 2.5 mg tablet 2.5 mg PO QPM HTN 04/07/24
cholecalciferol (vitamin D3) 25 mcg (1,000 unit) capsule (Vitamin D3) 25 mcg PO DAILY Supplement 04/07/24
furosemide 20 mg tablet (Lasix) 20 mg PO DAILY WATER PILL. 04/07/24
metoprolol succinate 25 mg tablet,extended release 24 hr 25 mg PO BID BP 04/07/24
Home Medication Changes
Pending Results: No
Total time spent discharging patient (in min): 34
--- NOTE | 2024-04-09 12:27 | PTCARENOTE ---
Pt seen by Olamide Waldrop NP and . Telemetry and IV device removed. Discharge instructions reviewed with pt regarding activity and driving restrictions, wound care, medications and their possible side effects, reporting cares and concerns and
follow up appts. Excellent understanding verbalized. Pt escorted out via wheelchair and discharged to home.
== END 2024-04-09 11:25 | disposition home or self-care (01) | DRG 322 ==
LOC: IVU 10:02
PROVIDERS: Nurse Practitioner Adult Health; ADMITTING PHYSICIAN Internal Medicine Interventional Cardiology; FAMILY PHYSICIAN Nurse Practitioner Family
PROC: B211YZZ Fluoroscopy of Multiple Coronary Arteries using Other Contrast (ICD-10-PCS; 2024-04-07)
PROC: 4A033BC Measurement of Arterial Pressure, Coronary, Percutaneous Approach (ICD-10-PCS; 2024-04-07)
PROC: B240ZZ3 Ultrasonography of Single Coronary Artery, Intravascular (ICD-10-PCS; 2024-04-07)
PROC: 4A023N8 Measurement of Cardiac Sampling and Pressure, Bilateral, Percutaneous Approach (ICD-10-PCS; 2024-04-07)
PROC: 027034Z Dilation of Coronary Artery, One Artery with Drug-eluting Intraluminal Device, Percutaneous Approach (ICD-10-PCS; 2024-04-08)
PROC: 02JA3ZZ Inspection of Heart, Percutaneous Approach (ICD-10-PCS; 2024-04-08)
DX: I25.110 Atherosclerotic heart disease of native coronary artery with unstable angina pectoris (principal); I50.30 Unspecified diastolic (congestive) heart failure; I45.10 Unspecified right bundle-branch block; M79.7 Fibromyalgia; I35.1 Nonrheumatic aortic (valve) insufficiency; I65.23 Occlusion and stenosis of bilateral carotid arteries; F32.A Depression, unspecified; E78.5 Hyperlipidemia, unspecified; K26.9 Duodenal ulcer, unspecified as acute or chronic, without hemorrhage or perforation; I11.0 Hypertensive heart disease with heart failure; G89.4 Chronic pain syndrome; J44.9 Chronic obstructive pulmonary disease, unspecified; M54.31 Sciatica, right side; Z96.652 Presence of left artificial knee joint; Z87.891 Personal history of nicotine dependence; Z95.5 Presence of coronary angioplasty implant and graft; Z79.82 Long term (current) use of aspirin; Z79.02 Long term (current) use of antithrombotics/antiplatelets; Z79.899 Other long term (current) drug therapy
CPT/HCPCS: 76937; 80048; 80053; 80061; 85027; 85347; 92978; 93005; 93460; 93799; 99152; 99153; C1725; C1753; C1769; C1874; C1887; C1894; C9600; Q9967

== ENCOUNTER → 2024-11-16 09:43 | Outpatient (REF) | payer MEDICARE, SELFPAY ==
[2024-11-16 11:04] LABS: Hematocrit 42.5 % (37.0-47.0); Hemoglobin 14.6 g/dL (12.0-16.0); Mean Corp Hgb Conc. 34.4 g/dL (33.0-37.0); Mean Corpuscular Volume 93.6 fL (81.0-99.0); Nucleated Red Blood Cells % 0 %; Platelet Count 287 10^3/uL (130-400); Red Cell Dist. Width 11.9 % (11.5-14.5)
[2024-11-16 11:35] LABS: C-Reactive Protein 11.10 mg/L (0.0-10.00)
[2024-11-16 11:40] LABS: ALT (SGPT) 33 U/L (0-35); AST (SGOT) 33 U/L (14-36); Albumin 4.8 g/dl (3.5-5.0); Alkaline Phosphatase 64 U/L (38-126); Blood Urea Nitrogen 28 mg/dl (7-17); Calcium 9.7 mg/dl (8.4-10.2); Carbon Dioxide 25 mmol/L (22-30); Chloride 103 mmol/L (98-107); Glucose 106 mg/dl (70-99); HDL Cholesterol 52 mg/dl; LDL Cholesterol, Calculated 125 mg/dl; Potassium 5.6 mmol/L (3.5-5.1); Sodium 138 mmol/L (135-145); Total Protein 8.1 g/dl (6.3-8.2); Very Low Density Lipoprotein 79 mg/dl (0-30); eGFR 57.66
[2024-11-16 11:52] LABS: Vitamin D, 25-OH*** 69.1 ng/mL (30-80)
[2024-11-17 20:34] LABS: Hepatitis B Surface Antigen Negative (Negative)
[2024-11-17 20:51] LABS: Hepatitis C Antibody Negative (Negative)
== END ==
LOC: RAD 09:43
PROVIDERS: ATTENDING PHYSICIAN Internal Medicine Rheumatology; FAMILY PHYSICIAN Family Medicine; OTHER PHYSICIAN Internal Medicine Cardiovascular Disease; REFERRING PHYSICIAN Internal Medicine Interventional Cardiology
DX: I10 Essential (primary) hypertension (principal); E78.2 Mixed hyperlipidemia; I25.10 Atherosclerotic heart disease of native coronary artery without angina pectoris; M54.9 Dorsalgia, unspecified; M81.0 Age-related osteoporosis without current pathological fracture
CPT/HCPCS: 36415; 72040; 72072; 72100; 72200; 80053; 80061; 82306; 82784; 83516; 84155; 84165; 84443; 85025; 85652; 86140; 86231; 86480; 86704; 86706; 86803; 87340

== ENCOUNTER → 2024-12-12 15:17 | Outpatient (REF) | payer MEDICARE, SELFPAY | LOC: PAVMRI 15:17 | PROVIDERS: ATTENDING PHYSICIAN Physician Assistant; FAMILY PHYSICIAN Family Medicine | DX: M54.14 Radiculopathy, thoracic region (principal); M48.10 Ankylosing hyperostosis [Forestier], site unspecified | CPT/HCPCS: 72146 ==